=== PATIENT | female | born 1980 | race Caucasian/White ===

== ENCOUNTER 2016-05-28 02:57 | Emergency (ER) | payer BC ==
[~2016-05-28] VITALS: Ht 175.2 cm; Wt 63.5 kg
[~2016-05-28 02:57] MED LIST: AMOXIL500 MG PO; ANUSOL1 OIN; ASPIR-LOW81 MG PO; ASPIRIN FOR CHI81 MG PO; BACTRIM DS 8001 TA1 PO; CEPHALEXIN250 MG/5 M PO; CIPROFLOXACIN500 MG PO; CLARITIN10 MG PO; COMPAZINE10 MG PO; DEPRESSION; DOCUSATE SODIU100 MG PO; DOXYCYCLINE100 M2 PO; FEOSOL300 MG PO; FLAGYL500 MG PO; FLEXERIL10 MG PO; FLONASE0.05 MG/AC NS; HYDROCODONE BIT1 T11 PO; IBU-6600 MG PO; IBU-TAB800 MG PO; IBUPROFEN600 MG PO; KEFLEX500 MG PO; LIDEX0.05% T; MACROBID100 M1 PO; MECLIZINE HCL25 M2 PO; MOTRIN800 MG PO; NAPROSYN500 MG PO; NKHM; NORFLEX100 MG PO; PERCOCET 325 MG1 TA5 PO; PREDNICOT20 MG PO; PRENATAL1 TA1 PO; PRENATAL1 TA2 PO; PRENATAL1 TAB PO; PROGEST50 MG/ML IM; PROTONIX40 MG PO; PYRIDIUM200 MG PO; ROBAXIN750 MG PO; SEPTRA DS 800 M1 TAB PO; SLEEPING PILL; SUDAFED60 MG PO; TAMIFLU75 MG PO; TERAZOL V; TRAMADOL HCL50 MG PO; TYLENOL W/ CODEI5 ML PO; VAG V; VIBRAMYCIN100 MG PO; VICO10300 PO; ZANTAC150 MG PO; ZITHROMAX Z PA250 MG PO; ZOFRAN ODT4 MG SL; ZOFRAN4 MG PO; Zofran4 MG PO
== END 2016-05-28 04:40 | disposition home or self-care (01) ==
LOC: ED 02:57
DX: S05.02XA Injury of conjunctiva and corneal abrasion without foreign body, left eye, initial encounter (principal); F17.200 Nicotine dependence, unspecified, uncomplicated; X58.XXXA Exposure to other specified factors, initial encounter; Y93.9 Activity, unspecified; Y92.9 Unspecified place or not applicable; Y99.9 Unspecified external cause status